=== PATIENT | male | born 1930 | race Caucasian/White ===

== ENCOUNTER 2020-06-25 13:50 | Inpatient (IN) ==
[2020-06-25 15:26] LABS: ABS Basophils 0.1 10^3/ul (0-0.2); ABS Eosinophils 0.2 10^3/ul (0-0.6); ABS Lymphocytes 0.7 10^3/ul (1.0-4.8); ABS Monocytes 0.6 10^3/ul (0-0.8); ABS Neutrophils 4.1 10^3/ul (1.5-7.7); Eosinophil % 3.1 %; Hematocrit 43 % (42-52); Hemoglobin 14.4 g/dL (14.0-18.0); Lymphocyte % 12.7 %; Mean Corpuscular HGB Conc 34 g/dL (31-36); Mean Corpuscular Hemoglobin 31 pg (27-31); Mean Corpuscular Volume 91 fL (80-94); Mean Platelet Volume 9.6 fL (7.4-10.4); Nucleated Red Blood Cells % 0.1; Platelet Count 185 10^3/uL (150-450); Red Cell Distribution Width 14 % (10-15); White Blood Count 5.7 10^3/uL (3.5-10.8)
[2020-06-25 15:34] LABS: Activated Partial Thrombo Time 35.9 seconds (26.0-38.0); INR 1.87 (0.82-1.09)
[2020-06-25 15:43] LABS: Troponin I 0.14 ng/mL (<0.03)
[2020-06-25 16:04] LABS: ALT 12 U/L (7-52); AST 15 U/L (13-39); Albumin/Globulin Ratio 1.4 (1-3); Alkaline Phosphatase 73 U/L (34-104); Anion Gap 7 mmol/L (2-11); BUN/Creatinine Ratio 17.1 (8-20); Blood Urea Nitrogen 29 mg/dL (6-24); C Reactive Protein 3.42 mg/L (<8.01); CO2 Carbon Dioxide 26 mmol/L (22-32); Calcium 9.6 mg/dL (8.6-10.3); Chloride 105 mmol/L (101-111); EGFR African American 46.4 (>60); EGFR Non-African American 38.3 (>60); Globulin 2.9 g/dL (2-4); Glucose 112 mg/dL (70-100); Potassium 4.6 mmol/L (3.5-5.0); Sodium 138 mmol/L (135-145); Total Protein 6.9 g/dL (6.4-8.9)
[2020-06-25] MEDS ORDERED: Furosemide 20 mg/2 ml IV VIAL IV SLOW PU ONE (16:13)
[2020-06-25 16:20] LABS: Influenza A Molecular Negative (Negative); Influenza B Molecular Negative (Negative)
[2020-06-25 17:17] LABS: Magnesium 1.9 mg/dL (1.9-2.7)
[2020-06-25] MEDS ORDERED: Albuterol HFA INHALER 8 gm MDI INH PRN (17:35)
[2020-06-25 18:49] LABS: Troponin I 0.13 ng/mL (<0.03)
[2020-06-25 20:53] LABS: Urine Appearance Clear; Urine Bilirubin Negative (Negative); Urine Blood 2+ (Negative); Urine Color Straw; Urine Glucose Negative (Negative); Urine Ketones Negative (Negative); Urine Nitrite Negative (Negative); Urine Protein 1+(30 mg/dL) (Negative); Urine Specific Gravity 1.009 (1.010-1.030); Urine Urobilinogen Negative (Negative)
[2020-06-25 21:17] LABS: Urine Bacteria Absent (Absent); Urine Red Blood Cell 3+(>10/hpf) (Absent); Urine White Blood Cell Trace(0-5/hpf) (Absent)
[2020-06-25 21:43] LABS: Troponin I 0.14 ng/mL (<0.03)
[2020-06-26 00:47] LABS: Troponin I 0.14 ng/mL (<0.03)
[2020-06-26 06:41] LABS: ABS Basophils 0.1 10^3/ul (0-0.2); ABS Eosinophils 0.2 10^3/ul (0-0.6); ABS Lymphocytes 0.7 10^3/ul (1.0-4.8); ABS Monocytes 0.7 10^3/ul (0-0.8); ABS Neutrophils 4.3 10^3/ul (1.5-7.7); Eosinophil % 2.9 %; Hematocrit 37 % (42-52); Hemoglobin 12.3 g/dL (14.0-18.0); Lymphocyte % 11.2 %; Mean Corpuscular HGB Conc 33 g/dL (31-36); Mean Corpuscular Hemoglobin 30 pg (27-31); Mean Corpuscular Volume 91 fL (80-94); Mean Platelet Volume 10.1 fL (7.4-10.4); Platelet Count 153 10^3/uL (150-450); Red Blood Count 4.07 10^6 /uL (4.18-5.48); Red Cell Distribution Width 14 % (10-15); White Blood Count 5.9 10^3/uL (3.5-10.8)
[2020-06-26 07:00] LABS: Albumin 3.5 g/dL (3.2-5.2); Albumin/Globulin Ratio 1.4 (1-3); Calcium 9.3 mg/dL (8.6-10.3); EGFR African American 50.1 (>60); EGFR Non-African American 41.4 (>60); Globulin 2.5 g/dL (2-4); Indirect Bilirubin 0.5 mg/dL (0.3-1.0); Potassium 4.4 mmol/L (3.5-5.0); Total Bilirubin 0.6 mg/dL (0.2-1.0)
[2020-06-26] MEDS: Mometasone/Formoter 200/5 MDI INH SCH ×2 (08:56→19:20)
[2020-06-26] MEDS ORDERED: Furosemide 40 mg/4 ml IV VIAL IV SLOW PU ONE (16:49)
[2020-06-27 02:12] LABS: Calcium 9.2 mg/dL (8.6-10.3); EGFR Non-African American 36.3 (>60); Magnesium 1.9 mg/dL (1.9-2.7); Potassium 4.2 mmol/L (3.5-5.0)
[2020-06-27] MEDS: Mometasone/Formoter 200/5 MDI INH SCH ×2 (07:39→19:34)
[2020-06-27] MEDS ORDERED: Furosemide 40 mg/4 ml IV VIAL IV SLOW PU ONE (14:28)
[2020-06-27 17:13] VITALS: BP 124/43
[2020-06-27 22:51] LABS: TSH Ultra Thyroid Stim Horm 1.3 mcIU/mL (0.34-5.60)
== END 2020-06-27 19:00 | disposition home or self-care (01) | DRG 292 ==
LOC: ED 13:50 → MED 18:01
PROVIDERS: ADMIT Internal Medicine; ATTEND Internal Medicine

== ENCOUNTER 2021-08-03 18:37 | Inpatient (IN) ==
[2021-08-03] MEDS ORDERED: NS 0.9% 1000 ml BAG 1,000 ML IV ONE (18:59)
[2021-08-03 20:04] LABS: ABS Basophils 0.1 10^3/ul (0-0.2); ABS Eosinophils 0.3 10^3/ul (0-0.6); ABS Lymphocytes 0.6 10^3/ul (1.0-4.8); ABS Monocytes 0.8 10^3/ul (0-0.8); ABS Neutrophils 5.6 10^3/ul (1.5-7.7); Eosinophil % 3.7 %; Hematocrit 38 % (42-52); Hemoglobin 12.5 g/dL (14.0-18.0); Mean Corpuscular HGB Conc 33 g/dL (31-36); Mean Corpuscular Hemoglobin 32 pg (27-31); Mean Corpuscular Volume 95 fL (80-94); Mean Platelet Volume 9.7 fL (7.4-10.4); Nucleated Red Blood Cells % 0.1; Platelet Count 207 10^3/uL (150-450); Red Blood Count 3.97 10^6 /uL (4.18-5.48); Red Cell Distribution Width 14 % (10-15); White Blood Count 7.4 10^3/uL (3.5-10.8)
[2021-08-03 20:09] LABS: Urine Appearance Cloudy; Urine Bilirubin Negative (Negative); Urine Blood 1+ (Negative); Urine Color Yellow; Urine Glucose Negative (Negative); Urine Ketones Negative (Negative); Urine Nitrite Negative (Negative); Urine Protein 1+(30 mg/dL) (Negative); Urine Specific Gravity 1.012 (1.002-1.030); Urine Urobilinogen Negative (Negative)
[2021-08-03 20:13] LABS: Urine Bacteria Absent (Absent); Urine Red Blood Cell 2+(6-10/hpf) (Absent); Urine White Blood Cell 3+(>20/hpf) (Absent)
[2021-08-03 20:26] LABS: High Sens Troponin Baseline 135 pg/mL (<20)
[2021-08-03] MEDS ORDERED: Cefepime 1 GM in Dextrose 1 GM/50 ML BAG IV ONE (20:33)
[2021-08-03 20:37] LABS: ALT 7 U/L (7-52); AST 9 U/L (13-39); Albumin 3.7 g/dL (3.2-5.2); Albumin/Globulin Ratio 1.4 (1-3); Alcohol, S < 13 mg/dL (<13); Alkaline Phosphatase 75 U/L (35-149); Blood Urea Nitrogen 69 mg/dL (6-24); CO2 Carbon Dioxide 24 mmol/L (22-32); Calcium 9.7 mg/dL (8.6-10.3); Chloride 106 mmol/L (101-111); Globulin 2.7 g/dL (2-4); Glucose 134 mg/dL (70-100); Sodium 138 mmol/L (135-145); Total Protein 6.4 g/dL (6.4-8.9); eGFR CKD-EPI 26.4 (>60)
[2021-08-03 20:42] LABS: Anion Gap 8 mmol/L (2-11); Potassium 5.4 mmol/L (3.5-5.0)
[2021-08-03] MEDS ORDERED: Cefepime 1 GM in Dextrose 1 GM/50 ML BAG IV SCH (21:00)
[2021-08-03] MEDS ORDERED: Lactated Ringers 1000 ml BAG 1,000 ML IV ONE (22:22)
[2021-08-03] MEDS ORDERED: Patiromer POWDER 8.4 GM PAK PO ONE (22:30)
[2021-08-03 23:09] LABS: TSH Ultra Thyroid Stim Horm 1.52 mcIU/mL (0.34-5.60)
[2021-08-03 23:19] LABS: Vitamin B12 248 pg/mL (180-914)
[2021-08-04 05:55] LABS: ABS Eosinophils 0.2 10^3/ul (0-0.6); ABS Lymphocytes 0.6 10^3/ul (1.0-4.8); ABS Monocytes 0.7 10^3/ul (0-0.8); ABS Neutrophils 4.7 10^3/ul (1.5-7.7); Eosinophil % 3.1 %; Hematocrit 32 % (42-52); Lymphocyte % 9.4 %; Mean Corpuscular HGB Conc 34 g/dL (31-36); Mean Corpuscular Hemoglobin 32 pg (27-31); Mean Corpuscular Volume 94 fL (80-94); Mean Platelet Volume 9.8 fL (7.4-10.4); Platelet Count 174 10^3/uL (150-450); Red Blood Count 3.43 10^6 /uL (4.18-5.48); Red Cell Distribution Width 14 % (10-15); White Blood Count 6.3 10^3/uL (3.5-10.8)
[2021-08-04 06:25] LABS: Potassium 4.9 mmol/L (3.5-5.0); eGFR CKD-EPI 30.4 (>60)
[2021-08-04] MEDS: Cholecalciferol (VIT D3) 1,000 unit TAB PO SCH (08:50)
[2021-08-04] MEDS ORDERED: Cefepime 1 GM in Dextrose 1 GM/50 ML BAG IV SCH (21:00)
[2021-08-05 06:02] LABS: ABS Eosinophils 0.3 10^3/ul (0-0.6); ABS Lymphocytes 0.7 10^3/ul (1.0-4.8); ABS Monocytes 0.7 10^3/ul (0-0.8); ABS Neutrophils 4.6 10^3/ul (1.5-7.7); Eosinophil % 4.1 %; Hematocrit 32 % (42-52); Hemoglobin 10.9 g/dL (14.0-18.0); Lymphocyte % 11.2 %; Mean Corpuscular HGB Conc 34 g/dL (31-36); Mean Corpuscular Hemoglobin 32 pg (27-31); Mean Corpuscular Volume 94 fL (80-94); Mean Platelet Volume 9.5 fL (7.4-10.4); Platelet Count 172 10^3/uL (150-450); Red Cell Distribution Width 14 % (10-15); White Blood Count 6.3 10^3/uL (3.5-10.8)
[2021-08-05 06:33] LABS: Potassium 4.6 mmol/L (3.5-5.0); eGFR CKD-EPI 35.1 (>60)
[2021-08-05] MEDS: Cholecalciferol (VIT D3) 1,000 unit TAB PO SCH (10:17)
[2021-08-05 17:13] LABS: C Reactive Protein 18.39 mg/L (<8.01)
[2021-08-05] MEDS ORDERED: NS 0.9% IVPB SCH (19:30)
[2021-08-05] MEDS ORDERED: AMPICILLIN IVPB SCH (19:30)
[2021-08-05] MEDS: AMPICILLIN ADVAN IVPB SCH (20:42)
[2021-08-05] MEDS: NS 0.9% IVPB SCH (20:42)
[2021-08-05] MEDS ORDERED: Ampicillin IV 1 GM in NS 0.9% 50 ML 50 ML IVPB SCH (21:00)
[2021-08-05] MEDS ORDERED: Ampicillin ADVAN 1 GM in NS 0.9% 50 ML 50 ML IVPB SCH (21:00)
[2021-08-06] MEDS: NS 0.9% IVPB SCH (04:23)
[2021-08-06] MEDS: AMPICILLIN ADVAN IVPB SCH (04:23)
[2021-08-06] MEDS ORDERED: Ampicillin ADVAN 2 GM in NS 0.9% 100 ml BAG 100 ML IVPB SCH (04:38)
[2021-08-06 06:49] LABS: ABS Eosinophils 0.3 10^3/ul (0-0.6); ABS Lymphocytes 0.7 10^3/ul (1.0-4.8); ABS Monocytes 0.8 10^3/ul (0-0.8); ABS Neutrophils 4.9 10^3/ul (1.5-7.7); Eosinophil % 4.7 %; Hematocrit 33 % (42-52); Hemoglobin 11.2 g/dL (14.0-18.0); Lymphocyte % 9.7 %; Mean Corpuscular HGB Conc 34 g/dL (31-36); Mean Corpuscular Hemoglobin 32 pg (27-31); Mean Corpuscular Volume 94 fL (80-94); Mean Platelet Volume 9.8 fL (7.4-10.4); Platelet Count 174 10^3/uL (150-450); Red Blood Count 3.49 10^6 /uL (4.18-5.48); Red Cell Distribution Width 14 % (10-15); White Blood Count 6.7 10^3/uL (3.5-10.8)
[2021-08-06 07:16] LABS: Albumin 3.1 g/dL (3.2-5.2); Albumin/Globulin Ratio 1.4 (1-3); Calcium 8.9 mg/dL (8.6-10.3); Globulin 2.2 g/dL (2-4); Potassium 4.7 mmol/L (3.5-5.0); Total Bilirubin 0.5 mg/dL (0.2-1.0); Total Protein 5.3 g/dL (6.4-8.9); eGFR CKD-EPI 41.2 (>60)
[2021-08-06] MEDS: Cholecalciferol (VIT D3) 1,000 unit TAB PO SCH (09:06)
[2021-08-06] MEDS ORDERED: Polyethylene Glycol 3350 17 GM PACKET PO PRN (10:44)
[2021-08-06] MEDS ORDERED: Senna TAB 8.6 mg TAB PO PRN (10:44)
[2021-08-06] MEDS ORDERED: Magnesium Hydroxide LIQ 30 ML UDC PO PRN (10:44)
[2021-08-06] MEDS: Ampicillin ADVAN 2 GM in NS 0.9% 100 ml BAG 100 ML IVPB SCH ×2 (12:17→20:05)
[2021-08-07] MEDS: Ampicillin ADVAN 2 GM in NS 0.9% 100 ml BAG 100 ML IVPB SCH ×3 (04:19→20:04)
[2021-08-07 06:51] LABS: Hematocrit 33 % (42-52); Hemoglobin 11.1 g/dL (14.0-18.0); Mean Corpuscular HGB Conc 34 g/dL (31-36); Mean Corpuscular Hemoglobin 32 pg (27-31); Mean Corpuscular Volume 94 fL (80-94); Mean Platelet Volume 9.6 fL (7.4-10.4); Platelet Count 172 10^3/uL (150-450); Red Blood Count 3.46 10^6 /uL (4.18-5.48); Red Cell Distribution Width 13 % (10-15); White Blood Count 7.1 10^3/uL (3.5-10.8)
[2021-08-07 07:28] LABS: Calcium 8.8 mg/dL (8.6-10.3); Potassium 4.8 mmol/L (3.5-5.0)
[2021-08-07 07:33] LABS: eGFR CKD-EPI 38.9 (>60)
[2021-08-07] MEDS: Cholecalciferol (VIT D3) 1,000 unit TAB PO SCH (09:07)
[2021-08-07] MEDS ORDERED: Albuterol HFA INHALER 8 gm MDI INH PRN (11:56)
[2021-08-08] MEDS: Ampicillin ADVAN 2 GM in NS 0.9% 100 ml BAG 100 ML IVPB SCH ×3 (03:54→20:05)
[2021-08-08 06:32] LABS: Calcium 8.7 mg/dL (8.6-10.3); Potassium 4.9 mmol/L (3.5-5.0); eGFR CKD-EPI 34.8 (>60)
[2021-08-08] MEDS: Cholecalciferol (VIT D3) 1,000 unit TAB PO SCH (09:51)
[2021-08-09] MEDS: Ampicillin ADVAN 2 GM in NS 0.9% 100 ml BAG 100 ML IVPB SCH ×3 (04:03→20:52)
[2021-08-09] MEDS: Cholecalciferol (VIT D3) 1,000 unit TAB PO SCH ×2 (11:45→12:34)
[2021-08-09 13:14] LABS: Rapid COVID-19 Molecular Undetected (Undetected)
[2021-08-09 14:06] LABS: Calcium 8.9 mg/dL (8.6-10.3); Potassium 4.9 mmol/L (3.5-5.0); eGFR CKD-EPI 34.6 (>60)
[2021-08-10] MEDS: Ampicillin ADVAN 2 GM in NS 0.9% 100 ml BAG 100 ML IVPB SCH ×2 (03:37→11:31)
[2021-08-10] MEDS: Cholecalciferol (VIT D3) 1,000 unit TAB PO SCH (08:56)
[2021-08-10 08:57] LABS: ABS Eosinophils 0.3 10^3/ul (0-0.6); ABS Lymphocytes 0.6 10^3/ul (1.0-4.8); ABS Monocytes 0.7 10^3/ul (0-0.8); ABS Neutrophils 4.8 10^3/ul (1.5-7.7); Eosinophil % 4.6 %; Hematocrit 33 % (42-52); Hemoglobin 11.1 g/dL (14.0-18.0); Lymphocyte % 9.6 %; Mean Corpuscular HGB Conc 34 g/dL (31-36); Mean Corpuscular Hemoglobin 32 pg (27-31); Mean Corpuscular Volume 95 fL (80-94); Mean Platelet Volume 9.5 fL (7.4-10.4); Platelet Count 181 10^3/uL (150-450); Red Blood Count 3.47 10^6 /uL (4.18-5.48); Red Cell Distribution Width 14 % (10-15); White Blood Count 6.5 10^3/uL (3.5-10.8)
[2021-08-10 09:40] LABS: Calcium 9.2 mg/dL (8.6-10.3); Magnesium 2.1 mg/dL (1.9-2.7)
[2021-08-10 11:02] VITALS: BP 106/38
== END 2021-08-10 17:35 | DRG 92 ==
LOC: ED 18:37 → MED 22:18 → SUATTDRO 22:18 → MED 08-04 00:52
PROVIDERS: ADMIT Internal Medicine; ATTEND Internal Medicine